=== PATIENT | male | born 1950 | race Two or more races ===

== ENCOUNTER 2016-11-16 20:47 | Emergency (ER) | payer SELFPAY ==
[~2016-11-16] VITALS: Ht 172.7 cm; Wt 72.6 kg
[2016-11-16] MEDS ORDERED: LORazepam Inj 2mg/ml 1ml IV ONE (21:00)
[2016-11-16] MEDS ORDERED: Thiamine HCl 100 MG in D5W 55 ML IVPB SCH (21:00)
[2016-11-16] MEDS ORDERED: levETIRAcetam 500 MG in D5W 110 ML IV ONE (21:00)
[2016-11-16 21:03] VITALS: BP 172/88
--- NOTE | 2016-11-16 21:03 | Emergency Room Report ---
History of Present Illness General Chief Complaint: Seizure Source: Patient, EMS Present Illness HPI The patient presents after having 3 witnessed seizures by a information security. Apparently they were generalized tonoclonic. EMS was summoned. He was brought in by paramedics. Patient had gradually improving mentation. He complains about body pain at this time. He states he has a history of seizures. He denies taking any medications. He does have a history of drinking alcohol and was drinking recently, but not today. He denies cough, NVD, rashes, sore throat, SI/HI. He initially told RNs he had chest pain but then denied this to me. He had a craniotomy in [place] many years ago. Allergies: Coded Allergies: UNABLE TO ASSESS (Unverified , 11/16/16) Patient History Past Medical History: see triage record Past Surgical History: other - craniotomy Social History: Reports: alcohol use Social History Narrative on streets Reviewed Nursing Documentation: PMH: Agreed, PSxH: Agreed Nursing Documentation-PM Past Medical History: No History, Except For Hx Seizures: Yes Review of Systems All Other Systems: negative except mentioned in HPI Physical Exam Vital Signs Date Time Temp Pulse Resp B/P Pulse Ox O2 Delivery O2 Flow Rate FiO2 11/16/16 20:37 86 16 172/88 98 Room Air Sp02 EP Interpretation: reviewed, normal General Appearance: well appearing, no apparent distress, GCS 15 Head: normocephalic Eyes: bilateral eye PERRL, bilateral eye normal inspection ENT: moist mucus membranes - poor dentition Neck: supple, no bony tend Respiratory: chest non-tender, lungs clear, normal breath sounds, other - chest wall tenderness Cardiovascular #1: regular rate, rhythm Cardiovascular #2: 2+ radial (R) Gastrointestinal: normal inspection, normal bowel sounds, non tender, no mass, non-distended Musculoskeletal: back normal, gait/station normal, normal range of motion Neurologic: alert, motor strength/tone normal, DTRs symmetric, sensory intact, speech normal, oriented - X2 Psychiatric: mood/affect normal Skin: normal inspection, warm/dry Medical Decision Making Diagnostic Impression: Primary Impression: Seizure Additional Impressions: Status post craniotomy Alcohol abuse Noncompliance with antiepileptic treatment ER Course Patient presents after having 3 seizures. Has a history of seizures. His admits to alcohol and not taking any medication. Differential includes subdural , bleed, seizure disorder, subtherapeutic medication, other drug ingestion, electrolyte abnormalities, aspiration pneumonia amongst others. The patient needs to be emergently evaluated with EKG, chest x-ray, CT of the head, labs. He received IV hydration and also Ativan, Keppra and thiamine. EKG as below. Labs with low CO2 and elevated CPK. CXR no acute process. CT is read as having a possible pontine bleed versus calcification. The patient presented to [facility] to review with neuro revenue integrity analyst. The patient was discussed with Dr. Al who felt there was no acute bleed as this would have significant neurologic compromise in the radha. The patient is improved after treatment. He is ambulatory without difficulty or ataxia. The patient was stable for outpatient observation and treatment. Laboratory Tests Test 11/16/16 20:55 11/17/16 01:00 White Blood Count 9.4 K/UL (4.8-10.8) Red Blood Count 4.41 M/UL (4.70-6.10) L Hemoglobin 14.3 G/DL (14.2-18.0) Hematocrit 41.7 % (42.0-52.0) L Mean Corpuscular Volume 94 FL (80-99) Mean Corpuscular Hemoglobin 32.3 PG (27.0-31.0) H Mean Corpuscular Hemoglobin Concent 34.2 G/DL (32.0-36.0) Red Cell Distribution Width 12.9 % (11.6-14.8) Platelet Count 194 K/UL (150-450) Mean Platelet Volume 6.4 FL (6.5-10.1) L Neutrophils (%) (Auto) 78.9 % (45.0-75.0) H Lymphocytes (%) (Auto) 11.8 % (20.0-45.0) L Monocytes (%) (Auto) 8.4 % (1.0-10.0) Eosinophils (%) (Auto) 0.1 % (0.0-3.0) Basophils (%) (Auto) 0.8 % (0.0-2.0) Sodium Level 136 mEQ/L (135-145) Potassium Level 3.8 mEQ/L (3.4-4.9) Chloride Level 95 mEQ/L (98-107) L Carbon Dioxide Level 18 mEQ/L (20-30) L Anion Gap 23 (5-15) H Blood Urea Nitrogen 11 mg/dL (7-23) Creatinine 0.9 mg/dL (0.7-1.2) Estimate Glomerular Filtration Rate > 60 mL/min (>60) Glucose Level 164 mg/dL (74-106) H Calcium Level 9.4 mg/dL (8.6-10.2) Total Bilirubin 0.5 mg/dL (0.0-1.2) Aspartate Amino Transferase (AST) 35 U/L (5-40) Alanine Aminotransferase (ALT) 13 U/L (3-41) Alkaline Phosphatase 62 U/L (40-129) Total Creatine Kinase 588 U/L (38-174) H Troponin I < 0.30 ng/mL (<=0.30) Total Protein 7.3 g/dL (6.6-8.7) Albumin 4.3 g/dL (3.5-5.2) Globulin 3.0 g/dL Albumin/Globulin Ratio 1.4 (1.0-2.7) Salicylates Level < 1 mg/dL (10-30) L Acetaminophen Level < 10 ug/mL (10-30) L Serum Alcohol < 10 mg/dL Urine Color Pale yellow Urine Appearance Clear Urine pH 7 (4.5-8.0) Urine Specific [place] 1.010 (1.005-1.035) Urine Protein 2+ (NEGATIVE) H Urine Glucose (UA) Negative (NEGATIVE) Urine Ketones Negative (NEGATIVE) Urine Occult Blood 1+ (NEGATIVE) H Urine Nitrite Negative (NEGATIVE) Urine Bilirubin Negative (NEGATIVE) Urine Urobilinogen Normal MG/DL (0.0-1.0) Urine Leukocyte Esterase 1+ (NEGATIVE) H Urine RBC 0-2 /HPF (0 - 0) H Urine WBC 0-2 /HPF (0 - 0) Urine Squamous Epithelial Cells Few /LPF (NONE/OCC) Urine Bacteria Occasional /HPF (NONE) Urine Mucus Few /LPF (NONE/OCC) H Urine Opiates Screen Negative (NEGATIVE) Urine Barbiturates Screen Negative (NEGATIVE) Phencyclidine (PCP) Screen Negative (NEGATIVE) Urine Amphetamines Screen Negative (NEGATIVE) Urine Benzodiazepines Screen Negative (NEGATIVE) Urine Cocaine Screen Negative (NEGATIVE) Urine Marijuana (THC) Screen Negative (NEGATIVE) EKG Diagnostic Results Rate: normal Rhythm: NSR ST Segments: no acute changes Rhythm Strip Diag. Results EP Interpretation: yes Rhythm: NSR, no PVC's, no ectopy Chest X-Ray Diagnostic Results Chest X-Ray Diagnostic Results : Chest X-Ray Ordered: Yes # of Views/Limited/Complete: 1 View Indication: Other Interpretation: no consolidation, no effusion, no pneumothorax, no acute cardiopulmonary disease Impression: No acute disease Interpreting ER Provider: Electronically signed by Cleve Burnette MD CT/MRI/US Diagnostic Results CT/MRI/US Diagnostic Results : Imaging Test Ordered: head Impression Impression: Linear hyperdensity in the radha. Suspect artifact or prominent vascular structure, with small hemorrhage not completely excludable. Followup CT or MRI should be considered for further evaluation No evidence of acute intracranial bleed or mass effect otherwise Evidence of prior left frontal craniectomy, with underlying encephalomalacia Other chronic and age-related changes, as described Minimal sinus disease Evidence of left orbital surgery Last Vital Signs Date Time Temp Pulse Resp B/P Pulse Ox O2 Delivery O2 Flow Rate FiO2 11/17/16 05:12 97.6 62 18 136/60 98 Room Air Status: improved Disposition: HOME, SELF-CARE Condition: Improved Scripts Levetiracetam (KEPPRA) 500 Mg Tablet 500 MG ORAL EVERY 12 HOURS, #30 TAB 0 Refills Prov: Cleve Burnette M.D. 11/17/16 Cleve Burnette M.D. Nov 16, 2016 21:03
[2016-11-16] MEDS ORDERED: levETIRAcetam 500mg vial IV ONE (21:06)
[2016-11-16] MEDS ORDERED: Thiamine HCl 100mg/ml 2 ml Inj ONE (21:06)
[2016-11-16 21:26] LABS: BASOPHILS % (AUTO) 0.8 % (0.0-2.0); EOSINOPHILS % (AUTO) 0.1 % (0.0-3.0); LYMPHOCYTES % (AUTO) 11.8 % (20.0-45.0); MEAN CORPUSCULAR HEMOGLOBIN 32.3 PG (27.0-31.0); MEAN CORPUSCULAR HGB CONC 34.2 G/DL (32.0-36.0); MEAN CORPUSCULAR VOLUME 94 FL (80-99); MEAN PLATELET VOLUME 6.4 FL (6.5-10.1); MONOCYTES % (AUTO) 8.4 % (1.0-10.0); NEUTROPHILS % (AUTO) 78.9 % (45.0-75.0); PLATELET COUNT 194 K/UL (150-450); RED BLOOD COUNT 4.41 M/UL (4.70-6.10); RED CELL DISTRIBUTION WIDTH 12.9 % (11.6-14.8); WHITE BLOOD COUNT 9.4 K/UL (4.8-10.8)
[2016-11-16 21:39] LABS: TROPONIN I < 0.30 ng/mL (<=0.30)
[2016-11-16 21:41] LABS: ACETAMINOPHEN < 10 ug/mL (10-30); ALANINE AMINOTRANSFERASE 13 U/L (3-41); ALBUMIN/GLOBULIN RATIO 1.4 (1.0-2.7); ALCOHOL < 10 mg/dL; ANION GAP 23 (5-15); ASPARTATE AMINO TRANSFERASE 35 U/L (5-40); CALCIUM 9.4 mg/dL (8.6-10.2); CARBON DIOXIDE 18 mEQ/L (20-30); CHLORIDE 95 mEQ/L (98-107); CREATININE 0.9 mg/dL (0.7-1.2); GLOMERULAR FILTRATION RATE > 60 mL/min (>60); HEMOLYSIS 53; POTASSIUM 3.8 mEQ/L (3.4-4.9); SODIUM 136 mEQ/L (135-145); TOTAL PROTEIN 7.3 g/dL (6.6-8.7)
[2016-11-16 22:35] VITALS: BP 137/54
[2016-11-17] VITALS: BP 134/60
[2016-11-17] MEDS ORDERED: KEPPRA500 M4 ORAL (01:36)
[2016-11-17 01:49] LABS: APPEARANCE,URINE CLEAR; KETONES,URINE NEGATIVE (NEGATIVE); LEUKOCYTE ESTERASE ,URINE 1+ (NEGATIVE); NITRITE,URINE NEGATIVE (NEGATIVE); PH,URINE 7 (4.5-8.0); PROTEIN,URINE 2+ (NEGATIVE); UROBILINOGEN,URINE NORMAL MG/DL (0.0-1.0)
[2016-11-17 02:00] VITALS: BP 130/56
[2016-11-17 02:09] LABS: BACTERIA,URINE OCCASIONAL /HPF; MUCUS,URINE FEW /LPF (NONE/OCC); RBC,URINE 0-2 /HPF (0 - 0); SQUAMOUS EPITHELIAL CELL,UR FEW /LPF (NONE/OCC); WBC,URINE 0-2 /HPF (0 - 0)
[2016-11-17 05:12] VITALS: BP 136/60
--- NOTE | 2016-11-17 09:34 | Diagnostic Imaging Report ---
Indications: Seizures Technique: Spiral acquisitions obtained through the brain. Angled axial and coronal 5 x 5 mm slices were reconstructed. Total dose length product 1470 mGycm. CTDI vol(s) 70 mGy. Dose reduction achieved using automated exposure control Comparison: None Findings: There is a left frontal craniectomy defect, with minimal underlying frontal cortical encephalomalacia. There is age-related enlargement of ventricles and extra-axial CSF spaces and considerable periventricular the white matter chronic ischemic change. Old lacunar infarcts are seen in the left basal ganglia region. Linear density in the radha is likely artifact although small acute bleed not completely excludable. No acute hemorrhage or edema. No mass effect nor midline shift. Surgical hardware seen reducing old left lateral orbital rim fracture. There is minimal frontal sinus disease incidentally noted. Impression: Linear hyperdensity in the radha. Suspect artifact or prominent vascular structure, with small hemorrhage not completely excludable. Followup CT or MRI should be considered for further evaluation No evidence of acute intracranial bleed or mass effect otherwise Evidence of prior left frontal craniectomy, with underlying encephalomalacia Other chronic and age-related changes, as described Minimal sinus disease Evidence of left orbital surgery This agrees with the preliminary interpretation provided overnight by [facility] teleradiology service. The CT scanner at [facility] is accredited by the [employer] and the scans are performed using protocols designed to limit radiation exposure to as low as reasonably achievable to attain images of sufficient resolution adequate for diagnostic evaluation.
--- NOTE | 2016-11-17 11:13 | Diagnostic Imaging Report ---
Indication: Shortness of breath Technique: One view of the chest Comparison: none Findings: Lungs and pleural spaces are clear. Heart size is normal. The aorta is tortuous and calcified. There are degenerative changes of the right shoulder Impression: No acute process This agrees with the preliminary interpretation provided by the emergency room physician
--- NOTE | 2016-11-17 16:05 | Cardiology Report ---
APPROVED REPORT EKG Measurement Heart [id number] FL [id number] Normal sinus rhythm Normal ECG
== END 2016-11-17 05:00 | disposition home or self-care (01) ==
LOC: EDBD 20:47 → EMR 20:59 → EDBD 20:59 → EMR 11-17 05:00
DX: G40.909 Epilepsy, unspecified, not intractable, without status epilepticus (principal); Z98.890 Other specified postprocedural states; F10.10 Alcohol abuse, uncomplicated; Z91.14 Patient's other noncompliance with medication regimen; J32.9 Chronic sinusitis, unspecified; G93.89 Other specified disorders of brain
CPT/HCPCS: 36415; 70450; 71010; 80053; 80300; 81003; 82550; 84484; 85025; 93005; 96360; 96361; 96374; 96375; 99284; G0480; J1953; 80329